=== PATIENT | female | born 1965 | race Caucasian/White ===

== ENCOUNTER → 2016-08-05 | Outpatient (CLI) | payer BC ==
--- NOTE | 2016-08-05 09:44 | DIAGNOSTIC IMAGING REPORT ---
CERVICAL SPINE 2 OR 3 VIEWS CLINICAL HISTORY: Neck pain with cervical radiculopathy. COMPARISON STUDY: No previous studies for comparison. FINDINGS: No acute fractures are visualized. There is 2.3 mm of retrolisthesis of C5 on C6. This is felt to be degenerative. There are degenerative changes with disc space narrowing most pronounced the C4-5 level. No destructive lesions are visualized. IMPRESSION: 1. No acute fractures 2. Disc space narrowing at the C4-5 level. Mild retrolisthesis of C5 on C6. Electronically signed by: Sarmad Lilly M.D. 08/05/2016 9:42 AM Dictated Date/Time: 08/05/2016 9:41 AM
--- NOTE | 2016-08-05 09:49 | DIAGNOSTIC IMAGING REPORT ---
RIGHT FOOT 3 VIEWS CLINICAL HISTORY: Right foot pain. FINDINGS: 3 views of the right foot are obtained. No prior studies are available for comparison at the time of dictation. The skeletal structures are well mineralized. No fracture is seen. 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 Degenerative spurring is seen along the anterior tibial plafond. The joint spaces are otherwise preserved. The overlying soft tissues are within normal limits. IMPRESSION: 1. No acute bony abnormality is identified in the right foot. 2. Os supranaviculare as above. Electronically signed by: Benito Melo M.D. 08/05/2016 9:47 AM Dictated Date/Time: 08/05/2016 9:40 AM
== END | disposition home or self-care (01) ==
LOC: C.LABBC 09:19
PROVIDERS: ATTEND Nurse Practitioner Adult Health
DX: M54.12 Radiculopathy, cervical region (principal); M79.671 Pain in right foot; M48.02 Spinal stenosis, cervical region

== ENCOUNTER → 2017-06-05 | Outpatient (CLI) | payer BC | END | disposition home or self-care (01) | LOC: C.LAB 07:08 | PROVIDERS: ATTEND Nutritionist | DX: R53.83 Other fatigue (principal) ==